=== PATIENT | female | born 1955 | race American Indian/Alaskan Native ===

== ENCOUNTER 2018-10-30 12:51 | Day surgery (SDC) | payer OTHER ==
[~2018-10-30 12:51] MED LIST: NACL 0.9% 1000 ML 1,000 ML IV SCH
--- NOTE | 2018-10-30 14:28 | Anesthesia Day of Surgery ---
Anesthesia Day of Surgery - Day of Surgery Patient Examined: Yes Patient H&P Reviewed: Yes Patient is NPO: Yes
--- NOTE | 2018-10-30 14:30 | Anesthesia Consultation ---
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
[2018-10-30] MEDS ORDERED: XYLOCAINE MPF 2% ONE (15:00)
[2018-10-30] MEDS ORDERED: WATER FOR IRRIG STERILE IR ONE (15:05)
[2018-10-30] MEDS ORDERED: WATER FOR IRRIG STERILE ONE (15:05)
[2018-10-30] MEDS ORDERED: DIPRIVAN 10 MG/ML IV ONE ×2 (15:12)
--- NOTE | 2018-10-30 16:11 | Operative Report ---
Operative Report Operative Report: Date of procedure: 10/30/2018 Procedure: Colonoscopy with Snare polypectomy and submucosal injection, Hot Biopsy Polypectomy by avulsion, ablation of polyp base. Attending physician: Eliazar Cox M.D. Glove Pairer: Eliazar Cox M.D. Indication: Patient is a 63-year-old female who presents for screening colonoscopy. This colonoscopy serves to evaluate patient so that treatment may be directed based on the findings. Consent: Informed consent was obtained after advising the patient and family regarding nature of this procedure, its indications, potential benefits as well as possible complications including but not limited to bleeding perforation and adverse reaction to medication, infection as well as other cardiopulmonary complications. An informed written and verbal consent was then obtained after due opportunity was provided for questions and answers. Monitoring: Patient was monitored continuously with pulse oximetry and electrocardiographic recordings as well as blood pressure recordings. Vital signs remained stable throughout this procedure with no untoward events. Preoperative assessment: Patient was assessed immediately prior to this procedure for capacity to tolerate monitored anesthesia care and moderate sedation as well as general anesthesia. Patient's ASA classification is 3, Mallampati class is 2, Hyomental distance is 3. Instrument: Olympus video colonoscope Medications: Propofol given intravenously in divided doses. For details please refer to anesthesia records. Description of procedure: Patient was placed in the left lateral decubitus position after achieving sedation, a digital rectal examination was performed following which the colonoscope was introduced into the anal verge and advanced to the cecum which was identified by the cecal valve, the appendiceal orifice, as well as by the cecal strap and direct transillumination. The colonoscope was subsequently withdrawn with careful inspection of all mucosal surfaces. Patient tolerated this procedure well and was subsequently taken to the recovery room. The following findings were noted. Findings: The preparation was adequate. Patient had in the cecum, a flat polyp measuring approximately 8 mm to 10 mm. It was elevated with submucosal injection of saline and removed by snare electrocautery. The edge of the polyp was removed by avulsion technique using hot biopsy foreceps polypectomy. The polyp edges were further ablated. The polypectomy site appeared clean. There were scattered diverticula in the ascending colon, transverse colon, descending colon and sigmoid colon. On a retroflexed view of the anal verge, patient had internal hemorrhoids. Impression: Cecal polyp status post submucosal injection, snare polypectomy. Internal hemorrhoids. Plan: Follow pathology report. High-fiber diet. Repeat colonoscopy in 5 years, if polyp is adenomatous.
--- NOTE | 2018-10-30 16:11 | Discharge Summary ---
Short Stay Discharge Plan Activity: advance as tolerated Weight Bearing Status: Weight Bear as Tolerated Diet: regular Additional Instructions: Post Sedation D/C Instructions When you return home you may resume your regular diet unless otherwise directed. - Go directly home from the hospital and rest quietly. You may resume normal activities tomorrow. -Do NOT drive, return to work, operate any machinery or make any important personal or business decisions today. -Do NOT drink any alcohol or take nerve or sleeping drugs. They add to the effects of the medicine still present in your body. No Aspirin or Aspirin products for 4 days Follow up with: [facility] [Primary Care Provider] - 7 Days
[2018-10-30 16:21] VITALS: BP 135/73
== END 2018-10-30 12:52 | disposition home or self-care (01) ==
LOC: GIO 12:51
PROVIDERS: ATTEND Internal Medicine Gastroenterology
DX: Z12.11 Encounter for screening for malignant neoplasm of colon (principal); D12.0 Benign neoplasm of cecum; K64.8 Other hemorrhoids; K57.30 Diverticulosis of large intestine without perforation or abscess without bleeding; Z79.899 Other long term (current) drug therapy; Z87.891 Personal history of nicotine dependence; Z98.890 Other specified postprocedural states
CPT/HCPCS: 45381; 45384; 45385; 88305; J2704; J7030